=== PATIENT | male | born 1975 | race Caucasian/White ===

== ENCOUNTER 2019-10-11 11:30 | Emergency (ER) | payer BC ==
--- NOTE | 2019-10-11 11:46 | EDM.PDOC ---
ED HPI GENERAL MEDICAL PROBLEM - General Chief Complaint: Lower Extremity Injury/Pain Stated Complaint: DAGOBERTO LFT FOOT Time Seen by Provider: 10/11/19 11:31 Source of Information: Reports: Patient History Limitations: Reports: No Limitations - History of Present Illness INITIAL COMMENTS - FREE TEXT/NARRATIVE: HISTORY AND PHYSICAL: History of present illness: Patient is a 44-year-old male presents to the ED today with concern of left ankle injury that occurred just prior to arrival to the ED. Patient states he was stepping on a semi-when his ankle slipped on the ice and he twisted his left ankle. Patient states he did catch himself and did not fall. Patient states he has sprained his left ankle in the past. Patient denies any other symptoms or concerns at this time. Patient denies fever, chills, chest pain, shortness of breath, or cough. Denies headache, neck stiff ness, change in vision, syncope, or near syncope. Denies nausea, vomiting, abdominal pain, diarrhea, constipation, or dysuria. Has not noted any blood in urine or stool. Patient has been eating and drinking appropriately. Review of systems: As per history of present illness and below otherwise all systems reviewed and negative. Past medical history: As per history of present illness and as reviewed below otherwise noncontributory. Surgical history: As per history of present illness and as reviewed below otherwise noncontributory. Social history: See social history for further information Family history: As per history of present illness and as reviewed below otherwise noncontributory. Physical exam: General: Patient is alert, oriented, and in no acute distress. Patient sitting comfortably on exam table. HEENT: Atraumatic, normocephalic, pupils equal and reactive bilaterally, negative for conjunctival pallor or scleral icterus, mucous membranes moist, TMs normal bilaterally, throat clear, neck supple, nontender, trachea midline. No drooling or trismus noted. No meningeal signs. No hot potato voice noted. Lungs: Clear to auscultation, breath sounds equal bilaterally, chest nontender. Heart: S1S2, regular rate and rhythm without overt murmur Abdomen: Soft, nondistended, nontender. Negative for masses or hepatosplenomegaly. Negative for costovertebral tenderness. Pelvis: Stable nontender. Genitourinary: Deferred. Rectal: Deferred. Skin: Intact, warm, dry. No lesions or rashes noted. Extremities: Negative for cords or calf pain. Neurovascular unremarkable. There is a mild to moderate amount of swelling of the lateral malleolus of the left ankle. Patient has full range of motion of the complete left ankle and digits of the left foot. Dorsalis pedis and posterior tibial pulses are grossly intact the left lower tavarez with capillary refill less than 2 seconds. Neuro: Awake, alert, oriented. Cranial nerves II through XII unremarkable. Cerebellum unremarkable. Motor and sensory unremarkable throughout. Exam nonfocal. Notes: Discussed the importance for follow-up with a primary care provider. Voices understanding and is agreeable to plan of care. Denies any further questions or concerns at this time. Diagnostics: Foot x-ray, ankle x-ray Therapeutics: Splint and crutches Prescription: (Patient declines tramadol rx for pain) Impression: Transverse fracture of lateral malleoli, left Plan: 1. Rest, ice, elevate the affected extremity. You can apply ice 15 minutes on, 15 minutes off. Keep the splint on until you follow up with orthopedic provider. Remain non-weight bearing until orthopedic follow up. 2. Tylenol and/or Ibuprofen as directed for pain management or discomfort. 3. Follow up with the primary care provider as discussed. Return to the ED as needed and as discussed. Definitive disposition and diagnosis as appropriate pending reevaluation and review of above. left ankle Pain Score (Numeric/FACES): 5 - Related Data Allergies Allergy/AdvReac Type Severity Reaction Status Date / Time bupropion Allergy Swelling Verified 10/11/19 11:41 [From Wellbutrin SR] Home Meds: Home Meds Albuterol Sulfate [Proair Hfa] 1 ea IN ASDIRECTED 10/11/19 [History] Fluticasone Propion/Salmeterol [Wixela 100-50 Inhub] 1 each IH ASDIRECTED [History] Past Medical History - Past Health History Medical/Surgical History: Denies Medical/Surgical History Respiratory History: Reports: Asthma Social & Family History - Family History Family Medical History: Noncontributory - Tobacco Use Smoking Status *Q: Never Smoker - Recreational Drug Use Recreational Drug Use: No Review of Systems - Review of Systems Review Of Systems: ROS reveals no pertinent complaints other than HPI. ED EXAM, GENERAL - Physical Exam Exam: See Below (See dictation) Course - Vital Signs Last Recorded V/S: Last Vital Signs Temp 97.0 F 10/11/19 11:38 Pulse 65 10/11/19 11:38 Resp 17 10/11/19 11:38 BP 106/61 10/11/19 11:38 Pulse Ox 98 10/11/19 11:38 Departure - Departure Time of Disposition: 12:13 Disposition: Home, Self-Care 01 Clinical Impression: Lateral malleolar fracture Qualifiers: Encounter type: initial encounter Fracture type: closed Fracture alignment: nondisplaced Laterality: left Qualified Code(s): S82.65XA - Nondisplaced fracture of lateral malleolus of left fibula, initial encounter for closed fracture - Discharge Information Referrals: PCP,Not In Area [Primary Care Provider] - Forms: ED Department Discharge Additional Instructions: The following information is given to patients seen in the emergency department who are being discharged to home. This information is to outline your options for follow-up care. We provide all patients seen in our emergency department with a follow-up referral. The need for follow-up, as well as the timing and circumstances, are variable depending upon the specifics of your emergency department visit. If you don't have a primary care physician on staff, we will provide you with a referral. We always advise you to contact your personal physician following an emergency department visit to inform them of the circumstance of the visit and for follow-up with them and/or the need for any referrals to a consulting specialist. The emergency department will also refer you to a specialist when appropriate. This referral assures that you have the opportunity for follow-up care with a specialist. All of these measure are taken in an effort to provide you with optimal care, which includes your follow-up. Under all circumstances we always encourage you to contact your private physician who remains a resource for coordinating your care. When calling for follow-up care, please make the office aware that this follow-up is from your recent emergency room visit. If for any reason you are refused follow-up, please contact the Emergency Department at and asked to speak to the emergency department charge nurse. Primary Care [address] [place] [id number] [facility] [address] [place] [address] Specialty Care - Orthopedic Clinic Professional Building [address] [facility], [address] [place] [address] Dr Roberts, Orthopedist [facility] [address] [place] [address] Dr Durham - Dr Arias - [facility] [address] [place] [address] [facility] [address] [place] [address] 1. Rest, ice, elevate the affected extremity. You can apply ice 15 minutes on, 15 minutes off. Keep the splint on until you follow up with orthopedic provider. Remain non-weight bearing until orthopedic follow up. 2. Tylenol and/or Ibuprofen as directed for pain management or discomfort. 3. Follow up with the primary care provider as discussed. Return to the ED as needed and as discussed.
--- NOTE | 2019-10-11 12:04 | CR ---
INDICATION: Ankle pain following trauma TECHNIQUE: Three views left ankle COMPARISON: None FINDINGS: Bones: Minimally displaced transverse lateral malleoli fracture. Joint spaces: Unremarkable. Soft tissues: Lateral ankle edema. IMPRESSION: Minimally displaced transverse lateral malleoli fracture with adjacent soft tissue edema. Dictated by Nam Ibarra MD @ 10/11/2019 12:03:48 PM Dictated by: Nam Ibarra MD @ 10/11/2019 12:03:55 (Electronically Signed)
--- NOTE | 2019-10-11 12:04 | CR ---
INDICATION: Ankle pain following trauma TECHNIQUE: Two views left foot COMPARISON: None FINDINGS: Bones: Alignment is normal. No fractures or bone lesions. Joint spaces: Unremarkable. Soft tissues: Total ankle edema. IMPRESSION: Bilateral ankle edema. Dictated by Nam Ibarra MD @ 10/11/2019 12:02:47 PM Dictated by: Nam Ibarra MD @ 10/11/2019 12:02:53 (Electronically Signed)
== END 2019-10-11 12:31 | disposition home or self-care (01) ==
LOC: MW.ED 11:30
DX: S82.65XA Nondisplaced fracture of lateral malleolus of left fibula, initial encounter for closed fracture (principal); J45.909 Unspecified asthma, uncomplicated; Z88.8 Allergy status to other drugs, medicaments and biological substances; W00.0XXA Fall on same level due to ice and snow, initial encounter
CPT/HCPCS: 73610-26-LT; 73610-LT; 73620-26-LT; 73620-LT; 99283-25